=== PATIENT | female | born 1970 | race Caucasian/White ===

== ENCOUNTER 2021-07-09 18:08 | Emergency (ER) | payer BC ==
[2021-07-09] MEDS ORDERED: ACETAMINOPHEN 325 MG TABLET (FP) PO ONE (18:15)
[2021-07-09 18:28] VITALS: BP 130/89; PULSE 89; TEMP 98.2; BMI 27.1
[2021-07-09] MEDS ORDERED: ACETAMINOPHEN 325 MG TABLET (FP) ONE (18:36)
== END 2021-07-09 19:10 | disposition home or self-care (01) ==
LOC: FER 18:08
PROC: 2W3MX1Z Immobilization of Left Lower Extremity using Splint (ICD-10-PCS; principal; 2021-07-09)
DX: S82.832A Other fracture of upper and lower end of left fibula, initial encounter for closed fracture (principal); W10.1XXA Fall (on)(from) sidewalk curb, initial encounter
CPT/HCPCS: 73610-TC-LT-FY; 73630-TC-LT; 99283-25